=== PATIENT | male | born 1990 | race Hispanic/Latino ===

== ENCOUNTER → 2016-12-25 | Day surgery (SDC) | payer BC, SELFPAY ==
[~2016-12-25] MED LIST: Bupivacaine HCl 0.5%/Epinephrine 1:200,000/PF 30 ml Vial ONE; Fentanyl 100 MCG/2 ML VIAL ONE; ISOVUE-370 76%-LOCM 1 ML ONE; Ondansetron HCl/PF 4 MG/2 ML Vial ONE; Piperacillin/Tazobactam 4.5 GM VIAL ONE
[2016-12-25 17:15] LABS: #Basophils 0.1 thou/uL (0.0-0.2); #Eosinphils 0.1 thou/uL (0.0-0.7); #Lymphocytes 2.5 thou/uL (1.20-3.40); #Monocytes 0.8 thou/uL (0.11-0.59); #Neutrophils 13.9 thou/uL (1.40-6.50); %Basophils 0.4 % (0.0-1.0); %Eosinophils 0.4 % (0.0-10.0); %Lymphocytes 14.5 % (21.0-51.0); %Monocytes 4.6 % (0.0-10.0); Hematocrit 44.5 % (42.0-52.0); Mean Platelet Volume 9.4 fL (7.4-10.4); Red Blood Cell (RBC) Count 4.82 mill/uL (4.70-6.10); White Blood Cell (WBC) Count 17.3 thou/uL (4.8-10.8)
[2016-12-25 17:26] LABS: PTT 24.7 SEC (22.9-36.1); Prothrombin Time 12.4 SEC (12.0-14.7)
[2016-12-25 17:37] LABS: ALT (SGPT) 114 U/L (8-55); AST (SGOT) 52 U/L (5-34); Alkaline Phosphatase 73 U/L (40-150); Anion Gap 15 mmol/L (10-20); BUN (Urea Nitrogen) 13 mg/dL (8.9-20.6); Bilirubin, Total 0.9 mg/dL (0.2-1.2); Calc. Creatinine Clearance 0 mL/min (70-130); Calcium 9.2 mg/dL (7.8-10.44); Carbon Dioxide 21 mmol/L (22-29); Chloride 104 mmol/L (98-107); Estimated GFR-MDRD Greater than 90; Globulin 2.9 g/dL (2.4-3.5); Lipase 18 U/L (8-78); Protein, Total 7.1 g/dL (6.0-8.3)
--- NOTE | 2016-12-25 17:58 | CT ---
CT ABDOMEN AND PELVIS WITH IV CONTRAST: 12/25/16 HISTORY: Epigastric abdominal pain with nausea and vomiting. FINDINGS: There are mild dependent changes in the lung bases. No free air, free fluid or lymphadenopathy seen in the abdomen or pelvis. The spleen, pancreas, adrenal glands and kidneys are normal. There is fatt y infiltration of the liver. No calcified gallstones are seen. There are appendicoliths in the dilated, fluid filled appendix with mild periappendiceal inflammator y changes. No acute osseous abnormalities are seen. IMPRESSION: 1. Acute appendicitis. 2. Fatty liver. The findings were discussed over the telephone with ER physician, Dr. Balderas at 5:52 p.m. POS: [facility]
[2016-12-25 18:32] LABS: Troponin I Less than 0.010 ng/mL (< 0.028)
[2016-12-25 18:52] LABS: Bilirubin Negative (Negative); Blood, Urine Negative (Negative); Glucose, Urine (Dipstick) Negative (Negative); Ketone, Urine Negative (Negative); Nitrite Negative (Negative); Protein, Urine (Dipstick) Negative (Neg-Trace); Urobilinogen 0.2 mg/dL (0.2-1.0)
--- NOTE | 2016-12-25 22:26 | HP ---
CHIEF COMPLAINT: Right lower quadrant abdominal pain. HISTORY OF PRESENT ILLNESS: The patient is a 26-year-old male with a 24-hour history of mid abdomin al pain, which has migrated to the right lower quadrant associated with nausea and vomiting. He den ies fever, no previous episodes, no dysuria. PAST MEDICAL HISTORY: Otherwise, healthy. PAST SURGICAL HISTORY: None. ALLERGIES: No known drug allergies. MEDICATIONS: None. SOCIAL HISTORY: He smokes marijuana regularly. Rare alcohol. Works at [employer]. He has a live-in girlfriend with which he has had children. FAMILY HISTORY: Noncontributory. PHYSICAL EXAMINATION: VITAL SIGNS: Temperature 98.6, pulse 51 and blood pressure 102/53. GENERAL: He is a well-developed, well-nourished male, obese, in no apparent distress. HEENT: Unremarkable. LUNGS: Clear. HEART: Regular rate and rhythm. ABDOMEN: Soft, but he has percussion tenderness in the right lower quadrant with a positive Rovsing 's. IMAGING DATA: He had a CT scan that is positive for appendicitis. LABORATORY DATA: White count 17, hemoglobin and hematocrit 15 and 43, platelet count 234. Electrol ytes: CO2 is 21, glucose 144, ALT 114 and AST 52. ASSESSMENT: Acute appendicitis. PLAN: Laparoscopic appendectomy. CONSENT: I have discussed the planned procedure as well as risk of bleeding, infection, injury to b owel, bladder and need to open. He understands and gives informed consent.
--- NOTE | 2016-12-26 00:54 | OP ---
PREOPERATIVE DIAGNOSIS: Acute appendicitis. SURGEON: Hiren Downs MD PROCEDURE PERFORMED: Laparoscopic appendectomy. INDICATIONS: Patient is a 26-year-old male, who has been having a 24-hour history of right lower qu adrant pain. CT showed acute appendicitis. FINDINGS: Acute suppurative nonperforated appendicitis. DESCRIPTION OF PROCEDURE: After informed consent was obtained, the patient was taken to the operati ng room, given general endotracheal anesthesia, placed in the supine position, abdomen was prepped a nd draped in the usual fashion. Local anesthesia infiltrated subcutaneously and deep, a periumbilic al incision was performed, subcu divided sharply. Fascia grasped and two stay sutures of 0 Vicryl p laced to either side of midline. Midline incised. Digital palpation revealed no local adhesions. A blunt 10/12 mm trocar inserted. Pneumoperitoneum was created to a pressure of 15 mmHg. A 0 degre e laparoscope was inserted. Under direct vision, two 5-mm ports were placed, one suprapubic and one right lateral abdomen. The appendix was found, the mesoappendix was divided utilizing the LigaSure . Base of the appendix was divided utilizing the linear 45 mm white load stapler. The appendix was placed in an Endosac and removed from the abdomen and the Endosac. Hemostasis was achieved. Troca rs and retractors were removed. The fascia was closed with interrupted 0 Vicryl suture. The skin c losed with interrupted 4-0 Rapide. Dermabond applied. The patient tolerated the procedure well and transferred to recovery in good condition. Sponge and needle count verified correct x2.
== END ==
LOC: ERS 16:42 → SDC 18:47
PROVIDERS: ATTEND Surgery
PROC: 0DTJ4ZZ Resection of Appendix, Percutaneous Endoscopic Approach (ICD-10-PCS; principal; 2016-12-25)
DX: K35.80 Unspecified acute appendicitis (principal); F12.90 Cannabis use, unspecified, uncomplicated
CPT/HCPCS: 74177; 80053; 81003; 82550; 82553; 83690; 84484; 85025; 85610; 85730; 93005; 94760; 96361; 96365; 96375; J0670; J1170; J2270; J2405; J2543; J3010

== ENCOUNTER 2017-07-17 16:53 | Emergency (ER) | payer BC ==
--- NOTE | 2017-07-17 18:20 | RAD ---
SOFT TISSUE NECK TWO VIEWS: 07/17/17 HISTORY: Foreign body sensation status post eating a lollipop and twisted the sucker part off. FINDINGS/IMPRESSION: No radiopaque foreign body seen. The airway is patent. Prevertebral soft tissues are normal. Alignmen t of the cervical vertebrae is within normal limits. POS: [facility]
[2017-07-17] MEDS ORDERED: Lidocaine Viscous Sol 2% 15 ml UD Cup ONE (19:16)
--- NOTE | 2017-07-17 19:45 | RAD ---
BARIUM SWALLOW ESOPHAGRAM 07/17/17 HISTORY: Ingested plastic. FINDINGS/IMPRESSION: Swallowing was grossly normal. No obstructive mass is seen in the esophagus. There is normal passage of contrast from the esophagus into the stomach. There is a questionable linear foreign body in the right side of the wall of the hypopharynx. This sh ould be evaluated with direct visualization or endoscopy. Discussed over the telephone with the ER physician, Dr. Lucio Pearson at 7:29 p.m. POS: [facility]
--- NOTE | 2017-07-18 02:39 | CON ---
DATE OF CONSULTATION: 07/17/2017 INPATIENT CONSULT REASON FOR CONSULTATION: The patient was seen in consultation by the emergency room for evaluation o f possible foreign body in throat. BRIEF HISTORY: He reports eating a lot of pop yesterday and felt that he was chewing on the stick an d possibly some of the debris from the stick caught in his throat. Yesterday afternoon, he had no pr oblems eating dinner or breakfast, but just feels scratchiness. No airway concerns. No fevers. He is tolerating secretions well. He ate a hamburger this morning and was able to pass it, but just fel t an irritation. PAST MEDICAL HISTORY: None. PAST SURGICAL HISTORY: None. ALLERGIES: No known drug allergies. MEDICATIONS: None. PHYSICAL EXAMINATION: HEENT: Voice clear. NECK: No lymphatic masses. X-ray and barium swallow are clear. PROCEDURE: Topical anesthesia and decongestant applied to nasal cavity. Flexible laryngoscopy was p erformed. Nasal cavity and nasopharynx are clear. Bilateral vocal cords are fully mobile. Piriform sinuses, vallecula, epiglottis showed no evidence of foreign body. ASSESSMENT: Likely upper esophageal or laryngeal minor laceration, which has now cleared itself. I see no evidence of foreign body and may keep him on a clear liquid diet for 48 hours. He will follow up with me on Wednesday if he is not much improved.
== END 2017-07-17 20:55 | disposition home or self-care (01) ==
LOC: ERS 16:53
DX: T17.298A Other foreign object in pharynx causing other injury, initial encounter (principal)
CPT/HCPCS: 70360; 74220

== ENCOUNTER 2021-07-13 07:01 | Emergency (ER) | payer BC ==
[2021-07-13] MEDS ORDERED: Ondansetron ODT 8 MG TAB ONE (07:29)
[2021-07-13] MEDS ORDERED: Boostrix 0.5 ML (Tdap) VIAL ONE (07:29)
[2021-07-13] MEDS ORDERED: Bacitracin 1 PK ONE (07:29)
[2021-07-13] MEDS ORDERED: Lidocaine 2% PF 5 ML VIAL ONE (07:29)
== END 2021-07-13 08:34 | disposition home or self-care (01) ==
LOC: ERS 07:01
DX: S01.81XA Laceration without foreign body of other part of head, initial encounter (principal); S63.601A Unspecified sprain of right thumb, initial encounter; S09.90XA Unspecified injury of head, initial encounter; X99.8XXA Assault by other sharp object, initial encounter; Z23 Encounter for immunization
CPT/HCPCS: 12013; 70450; 90471; 90715; J2001; Q0162

== ENCOUNTER 2021-07-18 10:13 | Emergency (ER) | payer BC | END 2021-07-18 10:42 | disposition home or self-care (01) | LOC: ERS 10:13 | DX: S01.81XD Laceration without foreign body of other part of head, subsequent encounter (principal); X58.XXXD Exposure to other specified factors, subsequent encounter ==